=== PATIENT | male | born 1950 ===

== ENCOUNTER 2016-12-17 09:38 | Inpatient (IN) | payer BC ==
[2016-12-14 11:39] LABS: % IMMATURE GRANULYOCYTES 0.2 % (0.0-1.1); ABSOLUTE IMMATURE GRANULOCYTES 0.01 10^3/uL (0.00-0.10); ADD DIFF? NO; ADD MORPH? NO; ADD SCAN? NO; ATYPICAL LYMPHOCYTE FLAG 10 (0-99); FRAGMENT RBC FLAG 0 (0-99); HEMATOCRIT 44.9 % (40.0-51.0); HEMOGLOBIN 15.3 g/dL (13.7-17.5); LEFT SHIFT FLG 0 (0-99); LIPEMIA HEMOLYSIS FLAG 90 (0-99); MEAN CELL HEMOGLOBIN 29.5 pg (27.9-34.1); MEAN CELL HEMOGLOBIN CONCENTR. 34.1 g/dL (32.4-36.7); MEAN CELL VOLUME 86.7 fL (81.5-99.8); MEAN PLATELET VOLUME 11.3 fL (8.7-11.7); PLATELET CLUMPS FLAG 0 (0-99); PLATELET COUNT 207 10^3/uL (150-400); RED BLOOD CELL COUNT 5.18 10^6/uL (4.40-6.38); RED CELL DISTRIBUTION WIDTH 12.3 % (11.5-15.2)
[~2016-12-17 09:38] MED LIST: DEXAMETHASONE 10 MG/ML VIAL IVP ONE; fentaNYL 100 MCG/2 ML INJ IT ONE; morphINE PF 5 MG/10 ML INJ IT ONE
[2016-12-17] MEDS ORDERED: DEXAMETHASONE 10 MG/ML VIAL ONE (10:08)
[2016-12-17] MEDS ORDERED: BACITRACIN 50,000 UNITS/10 ML SYR IRR ONE ×3 (10:30→15:37)
[2016-12-17] MEDS ORDERED: BUPIVACAINE 0.25% 30 ML SDV ONE (10:30)
[2016-12-17] MEDS ORDERED: BUPIVACAINE/EPI 0.25% 30 ML SDV ONE (10:30)
[2016-12-17] MEDS ORDERED: THROMBIN (BOVINE) 20,000 UNIT VIAL TP ONE (10:31)
[2016-12-17] MEDS ORDERED: CITRATE DEXTROSE SOLN 500 ML BAG ONE ×2 (10:49→12:03)
[2016-12-17] MEDS ORDERED: LR 1,000 ML IV ONE (10:58)
[2016-12-17] MEDS ORDERED: LIDOCAINE 1% 2 ML INJ ID PRN (10:58)
[2016-12-17] MEDS ORDERED: ceFAZolin 2 GM/DEXTROSE 100 ML IV ONE (11:07)
--- NOTE | 2016-12-17 11:07 | PDHPUP ---
History & Physical Update H&P update statement: This history and physical update is based on an assessment of the patient which was completed after admission or registration (within 24 hours), but prior to the surgery/procedure. H&P update: H&P reviewed & patient examined, no change in patient's condition since H&P completed
[2016-12-17] MEDS ORDERED: CEFAZOLIN 2 GM/DEXTROSE/100 ML BAG IV ONE (11:13)
[2016-12-17] MEDS ORDERED: MIDAZOLAM 2 MG/2 ML VIAL IVP ONE (11:23)
--- NOTE | 2016-12-17 11:25 | PDANEPAE ---
ANE History of Present Illness Pain and numbness R leg, just starting in L. ANE Past Medical History - Cardiovascular History Hx Hypertension: No Hx Arrhythmias: No Hx Chest Pain: No Hx Coronary Artery / Peripheral Vascular Disease: No Hx CHF / Valvular Disease: No Hx Palpitations: No - Pulmonary History Hx COPD: No Hx Asthma/Reactive Airway Disease: No Hx Recent Upper Respiratory Infection: No Hx Oxygen in Use at Home: No - Neurologic History Hx Cerebrovascular Accident: No Hx Seizures: No Hx Dementia: No - Endocrine History Hx Diabetes: No - Renal History Hx Renal Disorders: No - Liver History Hx Hepatic Disorders: No - Neurological & Psychiatric Hx Hx Neurological and Psychiatric Disorders: No - Cancer History Hx Cancer: No - Congenital Disorder History Hx Congenital Disorders: No - GI History Hx Gastrointestinal Disorders: Yes - Chronic Pain History Chronic Pain: Yes (BACK PAIN & R LEG/KNEE) ANE Review of Systems - Exercise capacity METS (RN): 4 METS ANE Patient History - Allergies Allergies/Adverse Reactions: latex Allergy (Verified 12/08/16 09:50) Penicillins Allergy (Verified 12/08/16 09:50) Swelling/neck,face,throat STEROIDS Allergy (Uncoded 12/08/16 09:50) - Home Medications Home Medications: Aspirin [Aspirin 325 mg (*)] 325 mg PO Q2D 12/08/16 [Last Taken 12/10/16] Naproxen Sodium [Aleve 220 MG (*)] 220 mg PO Q2D 12/08/16 [Last Taken 12/10/16] - NPO status NPO Since - Liquids (Date): 12/16/16 NPO Since - Liquids (Time): 00:00 NPO Since - Solids (Date): 12/16/16 NPO Since - Solids (Time): 19:00 - Anes Hx Anes Hx: no prior problems - Smoking Hx Smoking Status: Former smoker - Alcohol Use Alcohol Use: Occasionally - Family Anes Hx Family Hx Anesthesia Complications: NEG ANE Labs/Vital Signs - Labs Result Diagrams: 12/14/16 11:17 - Vital Signs Blood Pressure: 122/89 Heart Rate: 74 Respiratory Rate: 16 O2 Sat (%): 93 Height: 187.96 cm Weight: 95.254 kg ANE Physical Exam - Airway Neck exam: FROM Mallampati Score: Class 2 Mouth exam: normal dental/mouth exam - Pulmonary Pulmonary: no respiratory distress, no rales or rhonchi, clear to auscultation - Cardiovascular Cardiovascular: regular rate and rhythym, no murmur, rub, or gallop - ASA Status ASA Status: II ANE Anesthesia Plan Anesthesia Plan: general endotracheal anesthesia
[2016-12-17] MEDS ORDERED: ONDANSETRON 4 MG/2 ML VIAL IVP PRN ×2 (11:36→12:41)
[2016-12-17] MEDS ORDERED: BISACODYL 10 MG SUPP PR PRN (11:36)
[2016-12-17] MEDS ORDERED: MAGNESIUM HYDROXIDE 30 ML UDCUP PO PRN (11:36)
[2016-12-17] MEDS ORDERED: diphenhydrAMINE 25 MG CAP PO PRN (11:36)
[2016-12-17] MEDS ORDERED: ONDANSETRON DISINTEGRATING 4 MG TAB PO PRN (11:36)
[2016-12-17] MEDS ORDERED: LACTULOSE 20 GM/30 ML UDCUP PO PRN (11:36)
[2016-12-17] MEDS ORDERED: HYDROmorphONE/DILAUDID 2 MG/ML INJ ONE (11:39)
[2016-12-17] MEDS ORDERED: PROPOFOL 200 MG/20 ML VIAL ONE (11:40)
[2016-12-17] MEDS ORDERED: KETAMINE 100 MG/10 ML SYR ONE (11:42)
[2016-12-17] MEDS ORDERED: SUCCINYLCHOLINE CHLORIDE*ANESTHESIA ONLY*200 MG/10 ML SYR IVP ONE (11:43)
[2016-12-17] MEDS ORDERED: LIDOCAINE 2% 5 ML SDV ONE (11:43)
[2016-12-17] MEDS ORDERED: ONDANSETRON 4 MG/2 ML VIAL ONE (11:50)
[2016-12-17] MEDS ORDERED: DEXAMETHASONE 4 MG/ML VIAL ONE ×2 (11:50)
[2016-12-17] MEDS ORDERED: DEXMEDETOMIDINE HCL 200 MCG/2 ML VIAL IV ONE (11:52)
[2016-12-17] MEDS ORDERED: LR 500 ML IV PRN (12:41)
[2016-12-17] MEDS ORDERED: fentaNYL 100 MCG/2 ML INJ IVP PRN (12:41)
[2016-12-17] MEDS ORDERED: HYDROCODONE/APAP 5/325 TAB PO PRN (12:41)
[2016-12-17] MEDS ORDERED: METOCLOPRAMIDE 10 MG/2 ML VIAL IVP PRN (12:41)
[2016-12-17] MEDS ORDERED: NALOXONE HCL 0.4 MG/ML INJ IVP PRN (12:41)
[2016-12-17] MEDS ORDERED: PROMETHAZINE HCL 25 MG/ML INJ IVP PRN (12:41)
[2016-12-17] MEDS ORDERED: MEPERIDINE 25 MG/ML SYR IVP PRN (12:41)
[2016-12-17] MEDS ORDERED: TRANEXAMIC ACID 1,000 MG in NS 100 ML IV ONE (13:00)
[2016-12-17] MEDS ORDERED: ceFAZolin 1 GM VIAL ONE (14:44)
[2016-12-17] MEDS ORDERED: fentaNYL 100 MCG/2 ML INJ ONE (14:57)
[2016-12-17] MEDS ORDERED: morphINE PF 5 MG/10 ML INJ ONE (14:57)
[2016-12-17] MEDS ORDERED: THROMBIN (BOVINE) 5,000 UNIT VIAL TP ONE (15:14)
--- NOTE | 2016-12-17 16:50 | POSTOPPROG ---
Post Op Note Date of Operation: 12/17/16 Surgeon: Deonte Torres Expressive Art Therapist: rachel Anesthesiologist: feliciano Anesthesia: GET(General Endotracheal) Pre-op Diagnosis: L3-S1 DJD, stenosis Post-op Diagnosis: same Indication: low back pain right leg paresthesias Procedure: L3-S1 TLIF Findings: stenosis Inf/Abcess present in the surg proc area at time of surgery?: No EBL: 100-500 Complications: none Drains: Laureano Mak (to bulb suction)
--- NOTE | 2016-12-17 16:56 | POSTANESTH ---
Post Anesthetic Evaluation Cardiovascular Status: Tx Hyper/Hypo-tension (A little hypotensive on arrival in PACU (80s systolic), very likely due to dexmedetomidine. Expected to improve over next hour.) Respiratory Status: Normal, Stable, Similar to Pre-op Cond. Level of Consciousness/Mental Status: Can Participate in Eval, Moderately Sleepy Pain Control: Adequate, Prn Tx Ordered Nausea/Vomiting Control: Adequate, Prn Tx Ordered Complications Possibly Related to Anesthesia: None Noted
--- NOTE | 2016-12-17 16:56 | SOAPPROG ---
SOAP Progress Note Assessment/Plan: Assessment: Post op check: doing well after L3-S1 TLIF Plan: continue RUTHIE to bulb suction transfer to floor per protocol 12/17/16 16:51 Subjective: awake, alert, comfortable Objective: Vital Signs Temp Pulse Resp BP Pulse Ox 36.8 C 74 16 122/89 H 93 12/17/16 10:07 12/17/16 11:25 12/17/16 11:25 12/17/16 11:25 12/17/16 11:25 Laboratory Results 12/14/16 11:17 Neuro: AYALA, sens +LT FC x 4 Vitals: HR; 52 BP: 80/41 (RN is bolusing with NS now) O2;97% ICD10 Worksheet Patient Problems: Problems Problem Status Onset Lumbar canal stenosis Acute - ICD10 Problem Qualifiers (1) Lumbar canal stenosis
[2016-12-17 17:38] LABS: HEMATOCRIT 38.4 % (40.0-51.0); HEMOGLOBIN 13.1 g/dL (13.7-17.5)
[2016-12-17] MEDS: NS 1,000 ML IV SCH (18:50)
[2016-12-17] MEDS: ACETAMINOPHEN 500 MG TAB PO SCH ×2 (19:51→22:15)
[2016-12-17] MEDS: POLYETHYLENE GLYCOL 3350 17 GM PKT PO SCH ×2 (19:51→22:16)
[2016-12-17] MEDS: ceFAZolin 2 GM/DEXTROSE 100 ML IV SCH (20:16)
[2016-12-17] MEDS: SENNOSIDES/DOCUSATE SODIUM TAB PO SCH (22:15)
[2016-12-17] MEDS: morphINE SR 15 MG TAB PO SCH (22:16)
[2016-12-17] MEDS: FAMOTIDINE 20 MG TAB PO SCH (22:16)
[2016-12-18] MEDS: ceFAZolin 2 GM/DEXTROSE 100 ML IV SCH (04:44)
[2016-12-18] MEDS: oxyCODONE IR 5 MG TAB PO PRN (04:44)
[2016-12-18] MEDS: ACETAMINOPHEN 500 MG TAB PO SCH ×3 (04:44→21:26)
[2016-12-18 05:07] LABS: % IMMATURE GRANULYOCYTES 0.3 % (0.0-1.1); ABSOLUTE IMMATURE GRANULOCYTES 0.03 10^3/uL (0.00-0.10); ADD DIFF? NO; ADD MORPH? NO; ADD SCAN? NO; ATYPICAL LYMPHOCYTE FLAG 10 (0-99); FRAGMENT RBC FLAG 0 (0-99); HEMATOCRIT 33.3 % (40.0-51.0); HEMOGLOBIN 11.4 g/dL (13.7-17.5); LEFT SHIFT FLG 0 (0-99); LIPEMIA HEMOLYSIS FLAG 90 (0-99); MEAN CELL HEMOGLOBIN 30.1 pg (27.9-34.1); MEAN CELL HEMOGLOBIN CONCENTR. 34.2 g/dL (32.4-36.7); MEAN CELL VOLUME 87.9 fL (81.5-99.8); MEAN PLATELET VOLUME 11.1 fL (8.7-11.7); PLATELET CLUMPS FLAG 10 (0-99); PLATELET COUNT 147 10^3/uL (150-400); RED BLOOD CELL COUNT 3.79 10^6/uL (4.40-6.38); RED CELL DISTRIBUTION WIDTH 12.1 % (11.5-15.2)
[2016-12-18 05:26] LABS: ANION GAP 7 mEq/L (8-16); CALCIUM 8.4 mg/dL (8.5-10.4); CARBON DIOXIDE 22 mEq/l (22-31); CHLORIDE 105 mEq/L (97-110); CREATININE 0.9 mg/dL (0.7-1.3); GLOMERULAR FILTRATION RATE > 60; GLUCOSE 108 mg/dL (70-100); POTASSIUM 3.8 mEq/L (3.5-5.2); SODIUM 134 mEq/L (134-144)
--- NOTE | 2016-12-18 08:26 | NEUSURGPN ---
Assessment/Plan: 65 y/o male s/p L3-S1 TLIF/PSF POD1 -Optimize pain management -PT/OT -LSO when OOB -Continue RUTHIE drain today -DVT prophx: TEDs, SCDs, Lovenox okay POD1 -Post op xrays pending -Please notify NS with any change in neuro/motor exam Subjective: Low back pain, some right anterior thigh numbness Objective: NAD A&Ox3 MAEx4 5/5 and equal in BUE and BLE. Incisional dressing with some serous staining Catheter Insertion Date: 12/17/16 - Physician Discussed Patient with : Melissa Neurosurgery Physical Exam - Vitals, I&O, Labs I and O 12/17/16 12/18/16 12/19/16 05:59 05:59 05:59 Intake Total 5750 Output Total 2100 Balance 3650 Weight 95.254 kg Intake: Oral (ml) 550 IV Intake (ml) 4000 IV Infused (ml) 1200 Ns 1,000 ml @ 100 mls/hr 1000 IV CONT WANDA Rx#: [id number] ceFAZolin 2 GM/DEXTROSE 200 100 ml @ 200 mls/hr IV ONCALL ONE Rx#:[id number] Output: Urine (ml) 1100 Catheter 1100 Estimated Blood Loss (ml) 600 RUTHIE Drain Output (ml) 400 #1 Back 400 Other: Number of Voids Catheter 2 Vital Signs Temp Pulse Resp BP Pulse Ox 36.6 C 64 18 114/68 96 12/18/16 07:59 12/18/16 07:59 12/18/16 07:59 12/18/16 07:59 12/18/16 07:59 Laboratory Results 12/18/16 04:31 12/18/16 04:31 ICD10 Worksheet Patient Problems: Problems Problem Status Onset Lumbar canal stenosis Acute
[2016-12-18] MEDS: FAMOTIDINE 20 MG TAB PO SCH ×2 (10:18→21:27)
[2016-12-18] MEDS: METHOCARBAMOL 750 MG TAB PO PRN ×3 (10:18→21:27)
[2016-12-18] MEDS: SENNOSIDES/DOCUSATE SODIUM TAB PO SCH ×2 (10:19→21:26)
[2016-12-18] MEDS: POLYETHYLENE GLYCOL 3350 17 GM PKT PO SCH ×3 (10:20→21:25)
[2016-12-18] MEDS: ENOXAPARIN 40 MG/0.4 ML SYR SC SCH (10:20)
[2016-12-18] MEDS: morphINE SR 15 MG TAB PO SCH ×3 (10:21→21:27)
[2016-12-18] MEDS: NS 1,000 ML IV SCH (10:27)
[2016-12-18 11:53] VITALS: RESP 16
[2016-12-19] MEDS: ACETAMINOPHEN 500 MG TAB PO SCH ×3 (05:59→21:50)
[2016-12-19] MEDS: METHOCARBAMOL 750 MG TAB PO PRN ×3 (05:59→21:51)
[2016-12-19] MEDS: morphINE SR 15 MG TAB PO SCH ×2 (09:10→21:51)
[2016-12-19] MEDS: POLYETHYLENE GLYCOL 3350 17 GM PKT PO SCH ×3 (09:10→21:52)
[2016-12-19] MEDS: FAMOTIDINE 20 MG TAB PO SCH ×2 (09:10→21:51)
[2016-12-19] MEDS: SENNOSIDES/DOCUSATE SODIUM TAB PO SCH ×2 (09:10→21:51)
[2016-12-19] MEDS: ENOXAPARIN 40 MG/0.4 ML SYR SC SCH (09:10)
--- NOTE | 2016-12-19 14:33 | NEUSURGPN ---
Date of Surgery: 12/17/16 Post Op Day: 2 Assessment/Plan: 65 y/o male s/p L3-S1 TLIF/PSF POD2 -Optimize pain management -PT/OT -LSO when OOB -Continue RUTHIE drain at discharge -Post op xrays show stable hardware -DC to rehab later today -Please notify NS with any change in neuro/motor exam Subjective: Low back pain, some new right anterior thigh numbness since surgery, and some issue with constipation. Objective: NAD A&Ox3 MAEx4 5/5 and equal in BUE and BLE. Incisional dressing with some serous staining, dressing changed this am Urinary Catheter in Place: No Catheter Insertion Date: 12/17/16 - Physician Discussed Patient with : Melissa Neurosurgery Physical Exam - Vitals, I&O, Labs I and O 12/18/16 12/19/16 12/20/16 05:59 05:59 05:59 Intake Total 5750 3500 Output Total 2100 3005 Balance 3650 495 Weight 95.254 kg Intake: Oral (ml) 550 1200 IV Intake (ml) 4000 IV Infused (ml) 1200 2300 Ns 1,000 ml @ 100 mls/hr 1000 2300 IV CONT WANDA Rx#: [id number] ceFAZolin 2 GM/DEXTROSE 200 100 ml @ 200 mls/hr IV ONCALL ONE Rx#:[id number] Output: Urine (ml) 1100 2800 Catheter 1100 1000 Urinal 1800 Estimated Blood Loss (ml) 600 RUTHIE Drain Output (ml) 400 205 #1 Back 400 205 Other: Intake Quantity Yes Sufficient Number of Voids Catheter 2 Toilet 1 Urinal 4 Vital Signs Temp Pulse Resp BP Pulse Ox 36.8 C 67 16 119/83 H 95 12/19/16 08:00 12/19/16 08:00 12/19/16 08:00 12/19/16 08:00 12/19/16 08:00 Laboratory Results 12/18/16 04:31 12/18/16 04:31 ICD10 Worksheet Patient Problems: Problems Problem Status Onset Lumbar canal stenosis Acute
[2016-12-20] MEDS: METHOCARBAMOL 750 MG TAB PO PRN ×2 (05:44→12:11)
[2016-12-20] MEDS: ACETAMINOPHEN 500 MG TAB PO SCH ×3 (05:44→21:27)
--- NOTE | 2016-12-20 06:15 | NEUSURGPN ---
Date of Surgery: 12/17/16 Post Op Day: 3 Assessment/Plan: 65 y/o male s/p L3-S1 TLIF/PSF POD3 -Optimize pain management -PT/OT -LSO when OOB -Continue RUTHIE drain until wednesday -Post op xrays show stable hardware -DC home when able -Please notify NS with any change in neuro/motor exam Subjective: Anterior thight numbness is improved Objective: NAD A&Ox3 MAEx4 5/5 and equal in BUE and BLE. Incision cdi Catheter Insertion Date: 12/17/16 - Physician Discussed Patient with : Melissa Neurosurgery Physical Exam - Vitals, I&O, Labs I and O 12/19/16 12/20/16 12/21/16 05:59 05:59 05:59 Intake Total 3500 760 Output Total 3005 505 Balance 495 255 Intake: Oral (ml) 1200 760 IV Infused (ml) 2300 Ns 1,000 ml @ 100 mls/hr 2300 IV CONT WANDA Rx#: [id number] Output: Urine (ml) 2800 350 Catheter 1000 Urinal 1800 350 RUTHIE Drain Output (ml) 205 155 #1 Back 205 155 Other: Intake Quantity Yes Yes Sufficient Number of Voids Toilet 1 3 Urinal 4 1 Number of Stools Toilet 1 Vital Signs Temp Pulse Resp BP Pulse Ox 37.2 C 61 16 124/78 H 92 12/19/16 23:30 12/19/16 23:30 12/19/16 23:30 12/19/16 23:30 12/19/16 23:30 Laboratory Results 12/18/16 04:31 12/18/16 04:31 ICD10 Worksheet Patient Problems: Problems Problem Status Onset Lumbar canal stenosis Acute
[2016-12-20] MEDS: ENOXAPARIN 40 MG/0.4 ML SYR SC SCH (09:22)
[2016-12-20] MEDS: POLYETHYLENE GLYCOL 3350 17 GM PKT PO SCH ×3 (09:23→21:31)
[2016-12-20] MEDS: SENNOSIDES/DOCUSATE SODIUM TAB PO SCH ×2 (09:23→21:27)
[2016-12-20] MEDS: FAMOTIDINE 20 MG TAB PO SCH ×2 (09:23→21:27)
[2016-12-20] MEDS: morphINE SR 15 MG TAB PO SCH ×2 (09:23→21:31)
[2016-12-20] MEDS: oxyCODONE IR 5 MG TAB PO PRN (21:26)
[2016-12-21] MEDS: ACETAMINOPHEN 500 MG TAB PO SCH ×2 (05:44→12:55)
[2016-12-21 07:49] VITALS: BP 132/84; PULSE 72; TEMP 97.9; O2SAT 97
--- NOTE | 2016-12-21 08:10 | SOAPPROG ---
SOAP Progress Note Assessment/Plan: Assessment: 65 yo M POD #4 L3-S1 TLIF Plan: stable and doing well post op x-rays looks great PT/OT/ST scd/haydee for dvt prophylaxis dc sarah today dc home please call with neuro changes discussed with Dr Hardy 12/21/16 08:08 Subjective: minimal back pain, no leg pain, still with leg numbness. Objective: Vital Signs Temp Pulse Resp BP Pulse Ox 36.6 C 72 16 132/84 H 97 12/21/16 07:47 12/21/16 07:47 12/21/16 07:47 12/21/16 07:47 12/21/16 07:47 Laboratory Results 12/18/16 04:31 12/18/16 04:31 12/20/16 12/21/16 12/22/16 05:59 05:59 05:59 Intake Total 760 1150 Output Total 505 1115 Balance 255 35 AAOX4, +FC PERRL, EOMI, no facial droop SIDHDARTHA x 4 + light touch C/D/I ICD10 Worksheet Patient Problems: Problems Problem Status Onset Lumbar canal stenosis Acute
[2016-12-21] MEDS: morphINE SR 15 MG TAB PO SCH (08:34)
[2016-12-21] MEDS: POLYETHYLENE GLYCOL 3350 17 GM PKT PO SCH (08:35)
[2016-12-21] MEDS: ENOXAPARIN 40 MG/0.4 ML SYR SC SCH (08:37)
[2016-12-21] MEDS: FAMOTIDINE 20 MG TAB PO SCH (08:38)
[2016-12-21] MEDS: SENNOSIDES/DOCUSATE SODIUM TAB PO SCH (08:38)
[2016-12-21] MEDS: METHOCARBAMOL 750 MG TAB PO PRN (12:55)
== END 2016-12-21 13:37 | disposition home or self-care (01) | DRG 460 ==
LOC: F3N 09:38
PROVIDERS: ADMIT Neurological Surgery; ATTEND Neurological Surgery
DX: M48.06 Spinal stenosis, lumbar region (principal); M43.16 Spondylolisthesis, lumbar region; I10 Essential (primary) hypertension; Z91.040 Latex allergy status; Z88.0 Allergy status to penicillin; Z88.8 Allergy status to other drugs, medicaments and biological substances
CPT/HCPCS: 97116-GP; 97161-GP; 97165-GO; 97530-GP; 97535-GO; C1713; C1762; J0330; J0690; J1100; J1170; J1650; J2250; J2274; J2405; J2704; J3010; J7060

== ENCOUNTER → 2017-04-14 | Outpatient (CLI) | payer BC | LOC: FIMAGING 10:12 | PROVIDERS: ATTEND Physician Assistant Surgical | DX: Z09 Encounter for follow-up examination after completed treatment for conditions other than malignant neoplasm (principal); Z98.1 Arthrodesis status ==